=== PATIENT | male | born 1970 | race Caucasian/White ===

== ENCOUNTER → 2021-02-06 | Outpatient (CLI) | payer OTHER ==
[~2021-02-06] MED LIST: AMOXICILLIN
[2021-02-06 14:18] LABS: BASOPHILS ABSOLUTE AUTO 0.04 K/mm3 (0.00-0.23); BASOPHILS PERCENT AUTO 1 % (0-2); EOSINOPHILS ABSOLUTE AUTO 0.14 K/mm3 (0.00-0.68); EOSINOPHILS PERCENT AUTO 2 % (0-6); Hematocrit 44.9 % (37.0-53.0); Hemoglobin 15.5 g/dL (13.5-17.5); IMMATURE GRAN ABSOLUTE AUTO 0.04 K/mm3 (0.00-0.10); IMMATURE GRAN PERCENT AUTO 1 % (0-1); LYMPHOCYTES ABSOLUTE AUTO 1.55 K/mm3 (0.84-5.20); LYMPHOCYTES PERCENT AUTO 21 % (21-46); MONOCYTES ABSOLUTE AUTO 0.53 K/mm3 (0.16-1.47); MONOCYTES PERCENT AUTO 7 % (4-13); Mean Corpuscular HGB Conc 34.5 g/dL (31.5-36.5); Mean Corpuscular Volume 84 fL (80-100); Mean Platelet Volume 10.2 fL (9.1-12.4); NEUTROPHILS ABSOLUTE AUTO 5.11 K/mm3 (1.96-9.15); NEUTROPHILS PERCENT AUTO 69 % (41-73); Platelet Count 194 K/mm3 (150-400); RDW Coefficient Variation 12.8 % (11.7-14.2); RDW Standard Deviation 39.2 fL (35.1-46.3); Red Blood Cell Count 5.34 M/mm3 (4.30-5.90); White Blood Cell Count 7.41 K/mm3 (4.00-11.30)
[2021-02-06 14:37] LABS: Alanine Aminotransfer (ALT/SGP 29 U/L (12-78); Albumin, Blood 3.9 g/dL (3.4-5.0); Alk Phos 69 U/L (40-126); Anion Gap 10 mmol/L (6-16); Aspartate Aminotrans (AST/SGOT 19 U/L (12-37); Bilirubin, Total 0.4 mg/dL (0.1-1.0); Blood Urea Nitrogen 19 mg/dL (8-24); Bun/Creatinine Ratio 20.7 (12.0-20.0); CHOL/HDL RATIO 3.7; CO2, Blood 25 mmol/L (21-32); Calcium, Blood 8.8 mg/dL (8.5-10.1); Chloride, Blood 102 mmol/L (98-108); Cholesterol 219 mg/dL (50-200); Creatinine, Blood 0.92 mg/dL (0.60-1.20); Globulin, Blood 3.9 g/dL (2.2-4.0); Glomerular Filtration Rate >60 (60-); Glucose, Blood 100 mg/dL (70-99); HDL Cholesterol 60 mg/dL (>39); LDL/HDL RATIO 2.5; Low Density Lipoprotein Chol 148 mg/dL (<110); Potassium, Blood 4.1 mmol/L (3.5-5.5); Sodium, Blood 137 mmol/L (136-145); Thyroid Stimulating Hormone 2.149 uIU/mL (0.360-4.800); Total Protein, Blood 7.8 g/dL (6.4-8.2); Triglycerides 57 mg/dL (30-160); Very Low Density Lipoprot Chol 11 mg/dL (6-32)
== END | disposition home or self-care (01) ==
LOC: LAB SHORT 14:14
PROVIDERS: Physician Assistant
DX: I10 Essential (primary) hypertension (principal); R53.83 Other fatigue; N40.0 Benign prostatic hyperplasia without lower urinary tract symptoms; E66.9 Obesity, unspecified
CPT/HCPCS: 80053; 80061; 84443; 85025; G0103

== ENCOUNTER → 2021-08-08 | Outpatient (CLI) | payer BC ==
[2021-08-08 18:28] LABS: BASOPHILS ABSOLUTE AUTO 0.05 K/mm3 (0.00-0.23); BASOPHILS PERCENT AUTO 0 % (0-2); Hemoglobin 15.7 g/dL (13.5-17.5); LYMPHOCYTES ABSOLUTE AUTO 0.52 K/mm3 (0.84-5.20); LYMPHOCYTES PERCENT AUTO 4 % (21-46); MONOCYTES ABSOLUTE AUTO 0.64 K/mm3 (0.16-1.47); MONOCYTES PERCENT AUTO 5 % (4-13); Mean Corpuscular HGB 28.9 pg (26.0-34.0); Mean Corpuscular HGB Conc 34.1 g/dL (31.5-36.5); Mean Corpuscular Volume 85 fL (80-100); RDW Coefficient Variation 13.4 % (11.7-14.2); RDW Standard Deviation 41.5 fL (35.1-46.3); Red Blood Cell Count 5.43 M/mm3 (4.30-5.90); White Blood Cell Count 13.81 K/mm3 (4.00-11.30)
[2021-08-08 18:45] LABS: EOSINOPHILS ABSOLUTE AUTO 0.13 K/mm3 (0.00-0.68); EOSINOPHILS PERCENT AUTO 1 % (0-6); IMMATURE GRAN ABSOLUTE AUTO 0.19 K/mm3 (0.00-0.10); IMMATURE GRAN PERCENT AUTO 1 % (0-1); Mean Platelet Volume 10.2 fL (9.1-12.4); NEUTROPHILS ABSOLUTE AUTO 12.28 K/mm3 (1.96-9.15); NEUTROPHILS PERCENT AUTO 89 % (41-73); Platelet Count 158 K/mm3 (150-400)
[2021-08-08 18:55] LABS: BAND PERCENT MAN 11 % (0-8); BASOPHILS PERCENT MAN 0 % (0-2); EOSINOPHILS PERCENT MAN 0 % (0-6); LYMPHOCYTES ABSOLUTE MAN 0.69 K/mm3 (0.84-5.20); LYMPHOCYTES PERCENT MAN 5 % (21-46); MONOCYTES ABSOLUTE MAN 0.69 K/mm3 (0.16-1.47); MONOCYTES PERCENT MAN 5 % (4-13); NEUTROPHILS ABSOLUTE MAN 12.42 K/mm3 (1.96-9.15); SEG NEUTROPHILS PERCENT MAN 79 % (41-73)
== END | disposition home or self-care (01) ==
LOC: LAB SHORT 18:01 → LAB 18:01
PROVIDERS: Physician Assistant
DX: R50.9 Fever, unspecified (principal)
CPT/HCPCS: 85025

== ENCOUNTER 2024-10-25 08:27 | Inpatient (IN) | payer BC ==
[~2024-10-25] VITALS: Ht 172.7 cm; Wt 161.7 kg
[2024-10-25] MEDS ORDERED: Aspirin 81 MG Chew PO ONE (09:30)
[2024-10-25 09:34] LABS: BASOPHILS ABSOLUTE AUTO 0.04 K/mm3 (0.00-0.23); BASOPHILS PERCENT AUTO 1 % (0-2); EOSINOPHILS ABSOLUTE AUTO 0.12 K/mm3 (0.00-0.68); EOSINOPHILS PERCENT AUTO 2 % (0-6); Hematocrit 46.5 % (37.0-53.0); Hemoglobin 15.5 g/dL (13.5-17.5); IMMATURE GRAN ABSOLUTE AUTO 0.04 K/mm3 (0.00-0.10); IMMATURE GRAN PERCENT AUTO 1 % (0-1); LYMPHOCYTES ABSOLUTE AUTO 1.18 K/mm3 (0.84-5.20); LYMPHOCYTES PERCENT AUTO 18 % (21-46); MONOCYTES ABSOLUTE AUTO 0.43 K/mm3 (0.16-1.47); MONOCYTES PERCENT AUTO 6 % (4-13); Mean Corpuscular HGB 28.4 pg (26.0-34.0); Mean Corpuscular HGB Conc 33.3 g/dL (31.5-36.5); Mean Corpuscular Volume 85 fL (80-100); Mean Platelet Volume 9.7 fL (9.1-12.4); NEUTROPHILS ABSOLUTE AUTO 4.94 K/mm3 (1.96-9.15); NEUTROPHILS PERCENT AUTO 73 % (41-73); Platelet Count 185 K/mm3 (150-400); RDW Coefficient Variation 13.3 % (11.7-14.2); RDW Standard Deviation 41.1 fL (35.1-46.3); Red Blood Cell Count 5.46 M/mm3 (4.30-5.90); White Blood Cell Count 6.75 K/mm3 (4.00-11.30)
[2024-10-25 09:53] LABS: Albumin, Blood 3.5 g/dL (3.4-5.0); Albumin/Globulin Ratio 0.9 (0.8-1.8); Bilirubin, Total 0.3 mg/dL (0.1-1.0); Bun/Creatinine Ratio 22.1 (12.0-20.0); Calcium, Blood 8.7 mg/dL (8.5-10.1); Creatinine, Blood 0.99 mg/dL (0.60-1.20); Globulin, Blood 3.9 g/dL (2.2-4.0); Potassium, Blood 4.2 mmol/L (3.5-5.5); Total Protein, Blood 7.4 g/dL (6.4-8.2)
[2024-10-25 10:14] LABS: CHOL/HDL RATIO 3.7; Cholesterol 221 mg/dL (50-200); HDL Cholesterol 59 mg/dL (>39); LDL/HDL RATIO 2.5; Low Density Lipoprotein Chol 147 mg/dL (0-110); Triglycerides 75 mg/dL (30-160); Very Low Density Lipoprot Chol 15 mg/dL (6-32)
[2024-10-25] MEDS ORDERED: Nitroglycerin Patch 0.4 MG / HR TOP ONE (10:45)
[2024-10-25 11:13] LABS: Anti-Xa UFH, PHA Monitoring <0.10 IU/mL; Prothrombin Time Results 10.7 Sec (9.7-11.5)
[2024-10-25] MEDS ORDERED: Heparin Sodium 5000 Units/ML 1ML MDV IV ONE (11:20)
[2024-10-25] MEDS ORDERED: Heparin Sodium,Porcine/0.5 NS 500 ML IV SCH (11:20)
[2024-10-25] MEDS ORDERED: Prochlorperazine Edisylate 10 mg Vial IV PRN (11:40)
[2024-10-25] MEDS ORDERED: Polyethylene Glycol 3350 17 gm PO PRN (11:40)
[2024-10-25] MEDS ORDERED: Acetaminophen 500 MG Tab PO PRN (11:40)
[2024-10-25] MEDS ORDERED: FLU VACC TS2024-25(6MOS UP)/PF 45 MCG/0.5 ML SYRINGE IM SCH (11:40)
[2024-10-25] MEDS ORDERED: Carvedilol 6.25 MG Tab PO SCH ×2 (12:00→17:00)
[2024-10-25] MEDS ORDERED: Atorvastatin 40 MG Tab PO SCH (12:00)
[2024-10-25] MEDS ORDERED: Clopidogrel Bisulfate 300 MG Cap PO STA (13:14)
[2024-10-25] MEDS ORDERED: AmLODIPine Besylate 5 MG Tab PO SCH (14:00)
[2024-10-25 16:49] VITALS: BP 146/104
--- NOTE | 2024-10-25 18:42 | NUR ---
SHIFT SUMMARY: PATIENT ADMIT TO PCU 08 AT 1640. SBA UPON TRANSFER. STANDING WEIGHT COMPLETED. VITAL SIGNS STABLE. DENIES CHEST PAIN. HEPARIN DRIP INFUSING PER EMAR. TROPONIN CALLED INTO DR. LOZADA. PLAN FOR ANGIOGRAM TOMORROW. NPO AT MIDNIGHT. NITRO PATCH PLACED IN ED TO BE REMOVED AT 2200. ON ROOM AIR, LUNG SOUNDS DIMINISHED. HOME CPAP SET UP AT BEDSIDE. BOWEL TONES PRESENT. DENIES ISSUES WITH VOIDING. TOLERATING PO DIET FOR DINNER. SKIN C/D/I. ORIENTED TO PCU AND ROOM. MED REC COMPLETE, PATIENT DENIES TAKING ANY HOME MEDS. PATIENT EDUCATED ON FALL RISK. CALLING FOR NEEDS AND TRANSFER TO BATHROOM.
[2024-10-25 19:42] VITALS: BP 138/83
[2024-10-25] MEDS ORDERED: Dose Adjust by Pharmacy XX STA (21:38)
[2024-10-26] VITALS (14 sets, daily range): BP systolic 128–166; BP diastolic 73–106
[2024-10-26 02:17] LABS: BASOPHILS ABSOLUTE AUTO 0.05 K/mm3 (0.00-0.23); BASOPHILS PERCENT AUTO 1 % (0-2); EOSINOPHILS ABSOLUTE AUTO 0.15 K/mm3 (0.00-0.68); EOSINOPHILS PERCENT AUTO 2 % (0-6); Hematocrit 39.5 % (37.0-53.0); Hemoglobin 13.3 g/dL (13.5-17.5); IMMATURE GRAN ABSOLUTE AUTO 0.03 K/mm3 (0.00-0.10); IMMATURE GRAN PERCENT AUTO 0 % (0-1); LYMPHOCYTES PERCENT AUTO 24 % (21-46); MONOCYTES ABSOLUTE AUTO 0.73 K/mm3 (0.16-1.47); MONOCYTES PERCENT AUTO 8 % (4-13); Mean Corpuscular HGB Conc 33.7 g/dL (31.5-36.5); Mean Corpuscular Volume 86 fL (80-100); Mean Platelet Volume 9.6 fL (9.1-12.4); NEUTROPHILS ABSOLUTE AUTO 5.98 K/mm3 (1.96-9.15); NEUTROPHILS PERCENT AUTO 66 % (41-73); Platelet Count 175 K/mm3 (150-400); RDW Coefficient Variation 13.4 % (11.7-14.2); RDW Standard Deviation 42.3 fL (35.1-46.3); Red Blood Cell Count 4.58 M/mm3 (4.30-5.90); White Blood Cell Count 9.14 K/mm3 (4.00-11.30)
[2024-10-26] MEDS ORDERED: Dose Adjust by Pharmacy XX STA (03:09)
--- NOTE | 2024-10-26 06:38 | NUR ---
SHIFT SUMMARY: PT IS A&OX4, PLEASANT AND COOPERATIVE WITH CARE. VSS ON RA, CPAP ON WHILE ASLEEP. SR 60'S-80'S. PT DID HAVE TWO SYMPTOMATIC RUNS OF VTACH. RESIDENT SANAZ AWARE, ORDERED A MAG LAB DRAW AND A REPEAT EKG. DENIES PAIN. TOLERATING A HEART HEALTHY DIET, NPO AFTER MN FOR ANGIOGRAM TODAY. SBA FOR LINE MANAGEMENT TO BR. VOIDING ADEQUATE AMOUNTS OF DARK YELLOW URINE. NO BM THIS SHIFT. BED IN LOWEST POSITION, CALL LIGHT WITHIN REACH. CALLS APPROPRIATELY AND IS ABLE TO ADVOCATE NEEDS EFFECTIVELY.
[2024-10-26] MEDS ORDERED: Clopidogrel Bisulfate 75 MG Tab PO SCH (09:00)
[2024-10-26] MEDS ORDERED: Aspirin 81 MG Chew PO SCH (09:00)
[2024-10-26] MEDS ORDERED: Losartan Potassium 25 MG Tab PO SCH (09:25)
--- NOTE | 2024-10-26 10:39 | NUR ---
AM NOTE: PATIENT ALERT AND ORIENTED. SBA TO BATHROOM TO HELP MANAGE CORDS. DENIES PAINS. USING CALL LIGHT FOR NEEDS. TELE SHOWING SR WITH HR 60-80'S. DENIES CHEST PAIN/PRESSURE/PALPITATIONS. HEPARIN GTT INFUSING PER EMAR. NPO AT THIS TIME FOR ANGIOGRAM. ON ROOM AIR WHEN AWAKE. WEARING HOME CPAP AT BEDSIDE DURING SLEEP. LUNG SOUNDS DIMINISHED. DENIES SOB/COUGH. BOWEL TONES PRESENT. DENIES ABDOMINAL PAIN/NAUSEA. UP TO BATHROOM TO VOID. SKIN C/D/I WITH SOME SCATTERED BRUISING. DENIES NEEDS AT THIS TIME. CALL LIGHT IN REACH.
[2024-10-26] MEDS ORDERED: Verapamil HCL 2.5 MG/ML 2ML Injection ONE (10:41)
[2024-10-26] MEDS ORDERED: Heparin Sodium 1000 Units/ML 10ML MDV ONE ×2 (10:41→11:12)
[2024-10-26] MEDS ORDERED: Nitroglycerin 2 MG/20 ML BTL ONE (10:42)
[2024-10-26] MEDS ORDERED: NS 1,000 ML IV ONE ×2 (10:42→10:46)
[2024-10-26] MEDS ORDERED: NS 250 ML IV ONE (10:42)
[2024-10-26] MEDS ORDERED: Midazolam HCl 1MG / ML 2ML Vial ONE (11:12)
[2024-10-26] MEDS ORDERED: FentaNYL Citrate 50 MCG/ML 2 ML Injection ONE (11:12)
--- NOTE | 2024-10-26 11:51 | NUR ---
PATIENT TO ANGIOGRAM AT 1105
--- NOTE | 2024-10-26 14:48 | NUR ---
PATIENT BACK FROM [facility]ESS[facility] AT 1215. RIGHT TR BAND WITH ARM BOARD IN PLACE. RIGHT RADIAL SITE SOFT AND NONTENDER. NO SIGNS OF HEMATOMA. RIGHT RADIAL PULSE STRONG. PATIENT EDUCATED ON RIGHT RADIAL PRECAUTIONS. ORDERS FROM DR. LAN TO RESTART HEPARIN 4 HOURS POST TR BAND REMOVAL AND PATIENT ABLE TO EAT. ORDERS IN PLACE. PHARMACY UPDATED.
--- NOTE | 2024-10-26 18:11 | NUR ---
DISCHARGE: COBRA TRANSFER TO [facility]. LEFT UNIT AT 1810 WITH ALL PERSONAL BELONGINGS AND HOME CPAP. THIS RN REPORTED OFF TO CCU NURSE. PATIENT FAMILY UPDATED. HEPARIN TO BE RESTARTED AT 2030, CCU NURSE UPDATED ON HEPARIN PLANS AND TR BAND RECOVERY. TR BAND OFF AT 1630. NO SIGNS OF BLEEDING. REMAINED SOFT AND NONTENDER.
== END 2024-10-26 18:31 | disposition short-term general hospital (02) | DRG 281 ==
LOC: ER 08:27 → PCU 11:36 → ERHOLD 11:36 → PCU 16:40
PROVIDERS: Family Medicine; Student in an Organized Health Care Education/Training Program; ADMIT Internal Medicine
PROC: 5A09357 Assistance with Respiratory Ventilation, Less than 24 Consecutive Hours, Continuous Positive Airway Pressure (ICD-10-PCS; 2024-10-25)
PROC: B2111ZZ Fluoroscopy of Multiple Coronary Arteries using Low Osmolar Contrast (ICD-10-PCS; principal; 2024-10-26)
PROC: 4A023N7 Measurement of Cardiac Sampling and Pressure, Left Heart, Percutaneous Approach (ICD-10-PCS; 2024-10-26)
DX: I21.4 Non-ST elevation (NSTEMI) myocardial infarction (principal); I47.20 Ventricular tachycardia, unspecified; Z68.43 Body mass index [BMI] 50.0-59.9, adult; I25.10 Atherosclerotic heart disease of native coronary artery without angina pectoris; I10 Essential (primary) hypertension; G47.33 Obstructive sleep apnea (adult) (pediatric); E88.810 Metabolic syndrome; E66.01 Morbid (severe) obesity due to excess calories; E78.5 Hyperlipidemia, unspecified; R00.1 Bradycardia, unspecified; I77.810 Thoracic aortic ectasia; Z79.82 Long term (current) use of aspirin
CPT/HCPCS: 36415; 71046; 76937; 80053; 80061; 83690; 83735; 84443; 84484; 85025; 85520; 85610; 85730; 93306; 93458; 94762; 99152; 99153; 99285-25; A9270; C1769; C1887; C1894; J1644; J2250; J3010; J7030; J7050; Q9967